=== PATIENT | male | born 1975 | race African-American/Black ===

== ENCOUNTER 2017-10-30 09:01 | Emergency (ER) | payer SELFPAY ==
[~2017-10-30] VITALS: Ht 172.7 cm; Wt 100.2 kg
[2017-10-30 09:09] VITALS: BP 124/88
--- NOTE | 2017-10-30 09:31 | Emergency Room Report ---
History of Present Illness General Chief Complaint: Diarrhea Source: Patient Present Illness HPI Patient ate [place] chicken which he thinks was bad. Has had diarrhea = watery without vomiting. No blood. No fevers. Able to keep down food and fluids. No recent travel, antibiotics or ill contacts. No URI sy or dysuria. No chest pain. No comorbidities. His job requires flack jacket and [employer] belt with gun. Allergies: Coded Allergies: No Known Allergies (Unverified , 10/30/17) Patient History Past Medical History: see triage record Social History Narrative with sig other - works private security for [employer] Reviewed Nursing Documentation: PMH: Agreed, PSxH: Agreed Nursing Documentation-PMH Past Medical History: No Stated History Review of Systems All Other Systems: negative except mentioned in HPI Physical Exam Vital Signs Date Time Temp Pulse Resp B/P (MAP) Pulse Ox O2 Delivery O2 Flow Rate FiO2 10/30/17 09:05 97.9 91 20 121/87 96 Room Air Sp02 EP Interpretation: reviewed, normal General Appearance: well appearing, no apparent distress Head: normocephalic, atraumatic Eyes: bilateral eye normal inspection, bilateral eye PERRL ENT: hearing grossly normal, normal voice, moist mucus membranes Neck: full range of motion, supple Respiratory: no respiratory distress, speaking full sentences Cardiovascular #2: 2+ radial (L) Gastrointestinal: normal inspection, normal bowel sounds, non tender, soft, no mass Genitourinary: no CVA tenderness Musculoskeletal: back normal, digits/nails normal, gait/station normal, normal range of motion Neurologic: alert, motor strength/tone normal, normal gait, grossly normal Psychiatric: mood/affect normal Skin: no rash Medical Decision Making Diagnostic Impression: Primary Impression: Gastroenteritis Additional Impression: Diarrhea Qualified Codes: R19.7 - Diarrhea, unspecified ER Course Patient presents with diarrhea after questionable chicken ingestion. Ddx: GItis , salmonella, other bacterial infectious diarrhea, C difficile, viral, colitis amongst others. Exam and history against invasive bacterial infection. States he is improving. Will treat symptomatically. If not improved, consider stool WBC and culture. Patient stable for outpatient observation and treatment. Last Vital Signs Date Time Temp Pulse Resp B/P (MAP) Pulse Ox O2 Delivery O2 Flow Rate FiO2 10/30/17 09:38 97.9 80 20 124/88 96 Room Air Status: improved Disposition: HOME, SELF-CARE Condition: Improved Scripts Diphenoxylate HCl/Atropine (Lomotil Tablet) 1 Each Tablet 1 EACH PO BID, #6 TAB Prov: Valente Buck M.D. 10/30/17 Referrals: NOT CHOSEN NIR/,REFERRING (PCP) Valente Buck M.D. Oct 30, 2017 09:31
[2017-10-30] MEDS ORDERED: LOMOTIL TABLET1 EAC1 PO (09:33)
[2017-10-30 09:38] VITALS: BP 124/88
[2017-10-30] MEDS ORDERED: Lomotil 2.5mg tab ORAL ONE (09:45)
== END 2017-10-30 09:38 | disposition home or self-care (01) ==
LOC: EMR 09:14
DX: K52.9 Noninfective gastroenteritis and colitis, unspecified (principal)
CPT/HCPCS: 99283